=== PATIENT | female | born 1975 | race Caucasian/White ===

== ENCOUNTER 2016-11-19 09:20 | Emergency (ER) | payer OTHER ==
[~2016-11-19] VITALS: Ht 160 cm; Wt 95.1 kg
[2016-11-19] MEDS ORDERED: TESSALON PERLE100 MG PO (11:38)
[2016-11-19 12:08] VITALS: BP 145/81
== END 2016-11-19 12:09 | disposition home or self-care (01) ==
LOC: EME 09:20
DX: J20.9 Acute bronchitis, unspecified (principal); J02.9 Acute pharyngitis, unspecified; Z87.891 Personal history of nicotine dependence
CPT/HCPCS: 99281; 99283